=== PATIENT | female | born 1995 | race Caucasian/White ===

== ENCOUNTER 2017-12-15 15:33 | Emergency (ER) | payer OTHER ==
[2017-12-15] MEDS: IBUPROFEN 600 MG TAB PO (16:07)
== END 2017-12-15 17:02 | disposition home or self-care (01) ==
LOC: FTE 15:33
DX: R07.1 Chest pain on breathing (principal)
CPT/HCPCS: 71046; 93005; 99284-25

== ENCOUNTER 2018-01-22 20:14 | Emergency (ER) | payer OTHER ==
[2018-01-22] MEDS: DICYCLOMINE 10 MG CAP PO (23:19)
[2018-01-22] MEDS: ONDANSETRON (ODT) 4 MG TAB ODT (23:19)
== END 2018-01-23 00:11 | disposition home or self-care (01) ==
LOC: FTE 01-23 00:11
DX: R19.7 Diarrhea, unspecified (principal); R11.0 Nausea
CPT/HCPCS: 99283

== ENCOUNTER 2018-03-04 22:23 | Emergency (ER) | payer BC, OTHER ==
[2018-03-05 03:46] LABS: ANION GAP 10 (5-13); BLOOD UREA NITROGEN 15 mg/dl (7-20); CALCIUM 9.6 mg/dl (8.4-10.2); CARBON DIOXIDE 26 mmol/L (21-31); CHLORIDE 106 mmol/L (97-110); CREATININE 0.64 mg/dl (0.44-1.00); Estimated GFR > 60 mL/min (>60); GLUCOSE 93 mg/dl (70-220); POTASSIUM 4.1 mmol/L (3.5-5.1); SODIUM 142 mmol/L (135-144)
== END 2018-03-05 04:19 | disposition home or self-care (01) ==
LOC: FTE 22:23
DX: E87.5 Hyperkalemia (principal); R40.2412 Glasgow coma scale score 13-15, at arrival to emergency department
CPT/HCPCS: 80048; 93005; 99284-25